=== PATIENT | male | born 1990 | race African-American/Black ===

== ENCOUNTER 2022-09-13 15:28 | Emergency (ER) | payer MEDICAID ==
[~2022-09-13] VITALS: Ht 165.1 cm; Wt 77.0 kg
[2022-09-13 15:46] VITALS: BP 136/65
[2022-09-13] MEDS ORDERED: DIAZEPAM 2 MG TABLET PO ONE (19:15)
[2022-09-13] MEDS ORDERED: CYCL5TAB PO (19:28)
== END 2022-09-13 19:29 | disposition left against medical advice (07) ==
LOC: ER 15:28
DX: M62.838 Other muscle spasm (principal); I10 Essential (primary) hypertension; Z90.49 Acquired absence of other specified parts of digestive tract; Z98.890 Other specified postprocedural states
CPT/HCPCS: 99283